=== PATIENT | female | born 1970 | race Caucasian/White ===

== ENCOUNTER 2017-09-16 11:45 | Emergency (ER) | payer OTHER ==
[~2017-09-16] VITALS: Ht 170.1 cm; Wt 83.0 kg
[~2017-09-16 11:45] MED LIST: ADDERALL20 MG PO; PHENERGAN25 M1 PO; ZOFRAN ODT4 MG SL
[2017-09-16] MEDS ORDERED: NAPROSYN500 MG PO (12:34)
[2017-09-16] MEDS ORDERED: KEFLEX500 M1 PO (12:34)
[2017-09-16] MEDS ORDERED: SEPTDS PO (12:34)
== END 2017-09-16 12:37 | disposition home or self-care (01) ==
LOC: ED 11:45
DX: L02.11 Cutaneous abscess of neck (principal); R03.0 Elevated blood-pressure reading, without diagnosis of hypertension; F17.200 Nicotine dependence, unspecified, uncomplicated; Z79.899 Other long term (current) drug therapy

== ENCOUNTER 2018-09-18 09:13 | Emergency (ER) | payer OTHER ==
[~2018-09-18 09:13] MED LIST changes: +KEFLEX500 M1 PO; +NAPROSYN500 MG PO; +SEPTDS PO
[2018-09-18] MEDS ORDERED: TYLENOL325 M1 PO (09:26)
[2018-09-18] MEDS ORDERED: NAPROSYN500 MG PO (09:26)
[2018-09-18] MEDS ORDERED: CHANTIX1 M1 PO (09:26)
[2018-09-18] MEDS ORDERED: CYCLOBENZAPRINE10 MG PO (09:26)
[2018-09-18 09:50] LABS: BILIRUBIN NEGATIVE (NEGATIVE); BLOOD 3+ (NEGATIVE); CLARITY CLOUDY (CLEAR); COLOR YELLOW (YELLOW); GLUCOSE NEGATIVE (NEGATIVE); KETONE NEGATIVE (NEGATIVE); LEUKO ESTERASE NEGATIVE (NEGATIVE); NITRITE NEGATIVE (NEGATIVE); PH 5.5 (5.0-9.0); SPECIFIC GRAVITY >= 1.030 (1.005-1.030); UROBILINOGEN 0.2 E.U./dl (0.2-1.0)
[2018-09-18 09:59] LABS: BACTERIA 2+; EPITHELIAL CELLS 41-50; RBC 16-20 rbc/hpf (0-2)
== END 2018-09-18 10:11 | disposition home or self-care (01) ==
LOC: ED 09:13
PROVIDERS: Emergency Medicine
DX: M54.5 Low back pain (principal); R11.10 Vomiting, unspecified; M47.896 Other spondylosis, lumbar region; M41.86 Other forms of scoliosis, lumbar region; R50.9 Fever, unspecified; Z79.899 Other long term (current) drug therapy; F17.200 Nicotine dependence, unspecified, uncomplicated; X58.XXXA Exposure to other specified factors, initial encounter; Y93.89 Activity, other specified; Y92.89 Other specified places as the place of occurrence of the external cause; Y99.8 Other external cause status

== ENCOUNTER 2019-08-18 15:21 | Emergency (ER) | payer OTHER ==
[~2019-08-18] VITALS: Ht 170.1 cm; Wt 83.0 kg
[~2019-08-18 15:21] MED LIST changes: +CHANTIX1 M1 PO; +CYCLOBENZAPRINE10 MG PO; +TYLENOL325 M1 PO
[2019-08-18] MEDS ORDERED: AUGMENTIN 875-875 MG PO (17:07)
[2019-08-18] MEDS ORDERED: DIFLUCAN150 MG PO (17:07)
== END 2019-08-18 17:22 | disposition home or self-care (01) ==
LOC: ED 15:21
DX: H65.93 Unspecified nonsuppurative otitis media, bilateral (principal); J32.9 Chronic sinusitis, unspecified; Z79.899 Other long term (current) drug therapy

== ENCOUNTER → 2020-03-19 | Outpatient (CLI) | payer SELFPAY ==
[~2020-03-19] MED LIST changes: +AUGMENTIN 875-875 MG PO; +DIFLUCAN150 MG PO
== END | disposition home or self-care (01) ==
LOC: COVID19 00:11
PROVIDERS: ATTEND Student in an Organized Health Care Education/Training Program
DX: Z03.818 Encounter for observation for suspected exposure to other biological agents ruled out (principal)

== ENCOUNTER → 2021-03-11 | Outpatient (CLI) | payer OTHER ==
[~2021-03-11] MED LIST changes: +EFFEXOR XR150 M1 PO
== END | disposition home or self-care (01) ==
LOC: MAMMO 15:37
PROVIDERS: ATTEND Family Medicine
DX: Z12.31 Encounter for screening mammogram for malignant neoplasm of breast (principal)